=== PATIENT | female | born 2000 | race African-American/Black ===

== ENCOUNTER 2018-07-05 15:10 | Emergency (ER) | payer OTHER ==
[~2018-07-05] VITALS: Ht 162.6 cm; Wt 49.9 kg
[2018-07-05 15:27] LABS: URINE BILIRUBIN NEGATIVE (Negative); URINE BLOOD NEGATIVE (Negative); URINE CLARITY CLEAR; URINE COLOR YELLOW; URINE GLUCOSE-RANDOM* NEGATIVE (Negative); URINE KETONES NEGATIVE (Negative); URINE LEUKOCYTES-REFLEX NEGATIVE (Negative); URINE NITRITE-REFLEX NEGATIVE (Negative); URINE PROTEIN (DIPSTICK) NEGATIVE (Negative); URINE SPECIFIC GRAVITY >= 1.030 (1.005-1.035); URINE UROBILINOGEN 0.2 E.U./dl (0.2-1.0)
[2018-07-05 15:47] LABS: ABSOLUTE NEUTROPHILS 2.1 thou/uL (1.4-8.2); BASOPHILS 0.6 % (0.0-2.0); EOSINOPHILS 1.4 % (0.0-3.0); HEMATOCRIT 37.6 % (37.0-47.0); HEMOGLOBIN 12.4 gm/dL (12.0-15.0); LYMPHOCYTES 47.1 % (24.0-44.0); MCH 30.9 pg (26.0-34.0); MCHC 33.1 g/dL (28.0-37.0); MCV 93.4 fL (80.0-100.0); MONOCYTES 9.5 % (1.0-8.0); PLATELET COUNT 296 thou/uL (150-400); POLYS 41.4 % (36.0-66.0); RBC 4.02 mil/uL (4.20-5.00); RDW 13.4 % (10.5-14.5); WBC 5.2 thou/uL (4.0-11.0)
[2018-07-05 16:15] LABS: ALBUMIN 4.3 g/dL (3.4-5.0); CALCIUM 9.3 mg/dL (8.5-10.1); CREATININE 0.9 mg/dL (0.6-1.0); POTASSIUM 3.3 mmol/L (3.5-5.1); TOTAL BILIRUBIN 0.3 mg/dL (<0.1-1.0); TOTAL PROTEIN 8.5 g/dL (6.4-8.2)
[2018-07-05] MEDS ORDERED: LEVSIN0.125 MG PO (16:28)
[2018-07-05] MEDS ORDERED: ONDANSETRON HCL4 M2 PO (16:33)
[2018-07-05 16:59] VITALS: BP 115/68
== END 2018-07-05 17:00 | disposition home or self-care (01) ==
LOC: ER 15:10
PROVIDERS: Physician Assistant
DX: R10.30 Lower abdominal pain, unspecified (principal); R11.2 Nausea with vomiting, unspecified

== ENCOUNTER → 2018-08-12 | Outpatient (CLI) | payer BC, OTHER ==
[~2018-08-12] MED LIST: LEVSIN0.125 MG PO; ONDANSETRON HCL4 M2 PO
== END ==
LOC: ULTRA 07-28 10:01
DX: R10.84 Generalized abdominal pain (principal); R11.0 Nausea

== ENCOUNTER 2018-08-25 13:04 | Emergency (ER) | payer BC, OTHER ==
[~2018-08-25] VITALS: Ht 157.5 cm; Wt 53.1 kg
[2018-08-25 13:28] LABS: URINE CLARITY CLEAR; URINE COLOR YELLOW
[2018-08-25 13:29] LABS: URINE BILIRUBIN NEGATIVE (Negative); URINE BLOOD NEGATIVE (Negative); URINE GLUCOSE-RANDOM* NEGATIVE (Negative); URINE KETONES NEGATIVE (Negative); URINE LEUKOCYTES-REFLEX NEGATIVE (Negative); URINE NITRITE-REFLEX NEGATIVE (Negative); URINE PROTEIN (DIPSTICK) NEGATIVE (Negative); URINE SPECIFIC GRAVITY < 1.005 (1.005-1.035); URINE UROBILINOGEN 0.2 E.U./dl (0.2-1.0)
[2018-08-25 14:14] LABS: CALCIUM 9.7 mg/dL (8.5-10.1); CREATININE 0.8 mg/dL (0.6-1.0); POTASSIUM 3.4 mmol/L (3.5-5.1)
[2018-08-25 14:22] LABS: ALBUMIN 4.7 g/dL (3.4-5.0); TOTAL BILIRUBIN 0.3 mg/dL (<0.1-1.0); TOTAL PROTEIN 9.1 g/dL (6.4-8.2)
[2018-08-25 14:23] LABS: ABSOLUTE NEUTROPHILS 2.1 thou/uL (1.4-8.2); BASOPHILS 1.2 % (0.0-2.0); HEMATOCRIT 34.9 % (37.0-47.0); HEMOGLOBIN 11.9 gm/dL (12.0-15.0); LYMPHOCYTES 35.9 % (24.0-44.0); MCH 31.4 pg (26.0-34.0); MCHC 34.1 g/dL (28.0-37.0); MCV 92.2 fL (80.0-100.0); MONOCYTES 10.2 % (1.0-8.0); PLATELET COUNT 268 thou/uL (150-400); POLYS 51.7 % (36.0-66.0); RBC 3.78 mil/uL (4.20-5.00); RDW 13.2 % (10.5-14.5); WBC 4.1 thou/uL (4.0-11.0)
[2018-08-25] MEDS ORDERED: ONDANSETRON HCL4 M2 PO (14:59)
[2018-08-25 15:42] VITALS: BP 122/65
== END 2018-08-25 15:42 | disposition home or self-care (01) ==
LOC: ER 13:04
PROVIDERS: Emergency Medicine; Physician Assistant
DX: R11.2 Nausea with vomiting, unspecified (principal); R51 Headache